=== PATIENT | male | born 1995 | race Asian ===

== ENCOUNTER 2017-07-24 13:44 | Emergency (ER) | payer OTHER ==
[~2017-07-24] VITALS: Ht 177.8 cm; Wt 90.9 kg
[~2017-07-24 13:44] MED LIST: NOCURR
[2017-07-24] MEDS ORDERED: IBUPROFEN 800 MG TABLET PO ONE (15:00)
[2017-07-24 15:47] VITALS: BP 131/87
== END 2017-07-24 16:07 | disposition home or self-care (01) ==
LOC: EMS 13:45
DX: S63.501A Unspecified sprain of right wrist, initial encounter (principal); S63.601A Unspecified sprain of right thumb, initial encounter; W18.39XA Other fall on same level, initial encounter; Y93.67 Activity, basketball; Y92.89 Other specified places as the place of occurrence of the external cause; Y99.8 Other external cause status
CPT/HCPCS: 99284